=== PATIENT | female | born 1995 | race Caucasian/White ===

== ENCOUNTER 2017-07-06 05:49 | Inpatient (IN) ==
[2017-07-06] MEDS ORDERED: Ringers Solution, Lactated 1,000 ML ONE (06:18)
[2017-07-06] MEDS ORDERED: Oxytocin 20 units/ LR 1000 mL 20 UNIT/1,000 ML BAG IVC ONE (06:38)
[2017-07-06] MEDS ORDERED: Famotidine 20 MG/2 ML VIAL IVP ONE (06:38)
[2017-07-06] MEDS ORDERED: Metoclopramide 10 MG/2 ML VIAL IVP ONE (06:38)
[2017-07-06] MEDS ORDERED: Naloxone 0.4 MG/ML INJ IVP PRN (06:38)
[2017-07-06] MEDS ORDERED: Ondansetron 4 MG/2 ML VIAL IVP PRN ×2 (06:38→11:23)
[2017-07-06] MEDS ORDERED: ceFAZolin 3,000 MG in Water for inj. (sterile) 30 ML IVP ONE (06:42)
[2017-07-06] MEDS ORDERED: Oxytocin 20 units/ LR 1000 mL 20 UNIT/1,000 ML BAG IVC SCH ×2 (06:45→11:23)
[2017-07-06] MEDS ORDERED: Ringers Solution, Lactated 1,000 ML IVC SCH ×2 (06:45→07:30)
[2017-07-06 07:25] LABS: Basophils # 0.1 K/mcL (0.0-0.2); Basophils % 0.5 %; Eosinophils # 0.2 K/mcL (0.0-0.6); Eosinophils % 1.6 %; Hematocrit 31.7 % (35.3-44.9); Hemoglobin 10.1 g/dL (11.5-15.4); Immature Granulocytes % 1.1 % (0-4); Lymphocytes # 2.9 K/mcL (0.6-4.6); Lymphocytes % 30.5 %; Mean Corpuscular HGB Conc 31.9 g/dL (31.6-35.5); Mean Corpuscular Hemoglobin 26.9 pg (28.0-33.3); Mean Corpuscular Volume 84.3 fL (83.0-100.0); Mean Platelet Volume 10.8 fL (9.4-12.4); Monocytes # 1.1 K/mcL (0.0-1.3); Monocytes % 11.4 %; Neutrophils # 5.1 K/mcL (1.6-8.9); Nucleated Red Blood Cells 0.2 /100 WBC (0); Platelet Count 304 K/mcL (140-400); Red Blood Count 3.76 M/mcL (3.82-4.97); Red Cell Distribution Width 12.7 % (11.5-14.5); Segmented Neutrophils % 54.9 %
[2017-07-06] MEDS ORDERED: *HR* OxyCODONE Immed Rel 5 MG TABLET PO PRN (07:26)
[2017-07-06] MEDS ORDERED: *HR* HYDROmorphone 2 MG TABLET PO PRN (07:26)
[2017-07-06] MEDS ORDERED: Albuterol 2.5 MG/3 ML NEBULIZER IH ONE (07:26)
[2017-07-06] MEDS ORDERED: *HR* Promethazine 25 MG/ML VIAL IVP PRN (07:26)
[2017-07-06] MEDS ORDERED: Acetaminophen IV 1,000 MG/100 ML INFUS..BTL IVPB ONE (07:26)
[2017-07-06] MEDS ORDERED: Ondansetron 4 MG/2 ML VIAL IVP ONE (07:26)
--- NOTE | 2017-07-06 07:26 | Anesthesia Evaluation PreOp ---
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 Other Medical History: Denies Any Significant HX Anesthesia History: No Prior Anesthetic Complications, Past Anesthesia : Yes (39.3) Alcohol Use: none Drug use: none Medications and Allergies Heartburn Relief 1 PO PRN PRN 03/14/17 [History] [employer] Vitamins Tablet 1 tab PO DAILY 03/14/17 [History] Nausea Med 1 tab PO PRN PRN 03/14/17 [History] 3 Allergy/AdvReac Type Severity Reaction Status Date / Time No Known Allergies Allergy Verified 07/06/17 07:16 - Meds/Allergy Pre-op Review Medications Reviewed: Yes Allergies Reviewed: Yes Beta Blockers on Current Med List: No Anesthesia Exam Height: 1.63m Weight: 102kg NPO (# of Hours): 8 Pain Scale: 2 Pain Scale Used: Numeric (1 - 10) - HEENT Pupil (Motor): Pupils equal Mallampati: II Teeth: Normal Oral Opening: Greater than 3 - SQL PROGRAMMER ANALYST LOC: Oriented SQL PROGRAMMER ANALYST Motor: Normal RUE, Normal LUE, Normal RLE, Normal LLE, Normal Face SQL PROGRAMMER ANALYST Sensory: Normal: RUE, LUE, RLE, LLE, Face - Cardiac Rhythm: Regular Murmur: None JVD: No Carotid Bruit: No - Pulmonary Breath Sounds: bilateral Clear Respiratory Effort: Symmetrical Anesthesia Assess/Plan ASA Score: 2 Modified Summit Scale for Level of Consciousness: Cooperative, oriented, and tranquil Anesthetic Plan: General (plan b), Regional (plan a) Autologous Blood: Yes Monitoring Plan: Standard Monitors Recovery Plan: PACU
[2017-07-06] MEDS ORDERED: EPHEDrine 50 MG/ML VIAL ONE (07:37)
[2017-07-06] MEDS ORDERED: *HR* Oxytocin 10 UNIT/ML VIAL IM ONE (07:37)
[2017-07-06] MEDS ORDERED: *HR* FentaNYL (PF) 100 MCG/2 ML VIAL ONE (07:37)
[2017-07-06] MEDS ORDERED: Morphine Sulfate/PF 5mg/10mL Vial ONE (07:37)
[2017-07-06] MEDS ORDERED: Water for inj. (sterile) 10 ML IV ONE (07:38)
[2017-07-06] MEDS ORDERED: Ringers Solution, Lactated 2,000 ML ONE (08:15)
[2017-07-06] MEDS ORDERED: *HR* Phenylephrine 10 MG/ML VIAL ONE (08:44)
--- NOTE | 2017-07-06 09:11 | OB/GYN Procedure Note ---
Section - Date of procedure: 07/06/17 Preop diagnosis: desires repeat Post-op diagnosis: same Procedure: repeat low transverse Surgeon: Saud Nava Estimated blood loss (cc): 500 Was there an liaison inspection laboratory assistant present: No Anesthesiologist: Yvon Wilkes Anesthesia Type: Spinal section complications: none Disposition: PACU - (s) A Delivery Date: 07/06/17 Infant Delivery Time: 08:18 Presentation: vertex Position: ANCA Gender: Male Viability: Viable Pounds: 7 Ounces: 3 at 1 minute: 8 at 5 minutes: 9 Shoulder Dystocia: not encountered Specimens collected: cord blood Placenta: complete extraction - Narrative Narrative: Patient was taken to the operating room. After satisfactory spinal anesthesia was achieved, she was placed in supine position Mathis catheter inserted and prepped and draped in usual manner. After appropriate timeout, the abdomen was entered through standard Maylard incision. The Arminda retractor was placed. The peritoneum overlying the lower uterine segment was incised in the U-shaped fashion. The uterine cavity was entered sharply. Fluid was clear. With fundal pressure and vacuum assistance, the head was delivered. suctioned upon delivery of the head. The remainder of the was delivered , umbilical cord doubly clamped and cut, and infant handed to nursery staff for further evaluation. Placenta was removed and sent to pathology for home. Uterus was closed with 3-0 Monocryl in a single layer. After assurance of hemostasis, the abdomen was closed standard fashion using 0 Vicryl on the fascia and 3-0 Monocryl in the skin. Yumiko dressing was applied. Patient did well was taken to recovery room in satisfactory condition. Counts were correct.
--- NOTE | 2017-07-06 10:56 | Anesthesia Evaluation Post Op ---
Date of Encounter: 07/06/17 Time of Encounter: 10:54 - Vital Signs Vital Signs: Intake and Output 07/05/17 07/06/17 07/06/17 23:59 07:59 15:59 Other: Weight 102 kg Patient Weight 07/06/17 23:59 Weight 102 kg - Lungs Lungs: Clear Ascult./Percussion - Airway Airway: Non-obstructed - Cardiovascular Regular Rate, Baseline Rhythm - Mental Status Mental Status: Alert & Oriented, Answers Appropriately, Baseline Status - Pain Pain Scale: 2 Pain Scale used: Numeric (1 - 10) - Nausea Vomiting Nausea Vomiting: Responds to treatment with IV Meds - Hydration Hydration: NPO, Mathis catheter - Discharge PostOp Status: Transfer Patient to floor
[2017-07-06] MEDS ORDERED: *HR* OxyCODONE/APAP 5/325 TABLET PO PRN (11:23)
[2017-07-06] MEDS ORDERED: Simethicone 80 MG TAB.CHEW PO PRN (11:23)
[2017-07-06] MEDS ORDERED: Sennosides 8.6 MG TABLET PO PRN (11:23)
[2017-07-06] MEDS ORDERED: Metoclopramide 10 MG/2 ML VIAL IVP PRN (11:23)
[2017-07-07 05:21] LABS: Basophils % 0.1 %; Eosinophils # 0.1 K/mcL (0.0-0.6); Eosinophils % 1.3 %; Hematocrit 26.3 % (35.3-44.9); Immature Granulocytes % 0.6 % (0-4); Lymphocytes # 2.3 K/mcL (0.6-4.6); Lymphocytes % 23.5 %; Mean Corpuscular HGB Conc 32.3 g/dL (31.6-35.5); Mean Corpuscular Hemoglobin 27.9 pg (28.0-33.3); Mean Corpuscular Volume 86.2 fL (83.0-100.0); Mean Platelet Volume 10.8 fL (9.4-12.4); Monocytes # 1.2 K/mcL (0.0-1.3); Monocytes % 12.1 %; Neutrophils # 6.1 K/mcL (1.6-8.9); Platelet Count 226 K/mcL (140-400); Red Blood Count 3.05 M/mcL (3.82-4.97); Red Cell Distribution Width 12.8 % (11.5-14.5); Segmented Neutrophils % 62.4 %
[2017-07-07 05:23] LABS: Hemoglobin 8.5 g/dL (11.5-15.4)
[2017-07-07] MEDS: Prenatal Vit/FA 1 EACH TABLET PO SCH (08:24)
--- NOTE | 2017-07-07 08:27 | OB/GYN Progress Note ---
Date of Encounter: 07/07/17 Time of Encounter: 08:24 - Assessment and Plan (1) Status post section Current Visit: Yes Status: Acute POD #1 repeat c/s with Dr. Nava Hgb down to 8.5 from 10.1. PT asymptomatic. Pt receiving iron supplementation. Will continue to monitor. Pt has pain when up moving, has not had pain meds since c/s. Advised to ask for prn meds when having pain. Complains of passing clots and blood in toilet this morning, advised that this is normal post op. Pt meeting post milestones (2) Acute blood loss anemia Current Visit: Yes Status: Acute Subjective - Subjective Interval history: POD #[address] Nava. Pt reports that she is doing well with minimal pain. She is passing gas and urinating, no BM yet. Her pain is mild until she moves. She states that she has not had anything for pain since her c- section. She does report passing blood and clots vaginally when she was urinating this morning. Patient reports: appetite normal, voiding normally, pain poorly controlled (has not had pain meds), ambulating normally [place]: doing well, bottle feeding Objective - Vital Signs Latest vital signs: Vital Signs Temp Pulse Pulse Resp BP Pulse Ox 07/07/17 08:02 68 16 109/76 98 07/07/17 04:40 98.1 F 77 16 112/67 97 07/06/17 20:05 98.2 F 68 14 115/61 99 07/06/17 14:18 78 16 07/06/17 14:00 97.7 F 68 16 116/70 99 07/06/17 13:05 70 16 07/06/17 13:00 97.6 F 67 16 117/68 98 07/06/17 12:04 16 07/06/17 12:00 97.6 F 65 16 115/69 96 07/06/17 11:30 97.6 F 68 16 116/63 99 07/06/17 11:00 97.6 F 61 16 116/65 100 Intake and Output 07/06/17 07/07/17 07/07/17 23:59 07:59 15:59 Output Total 400 / 400 625 / 625 Balance -400 / -400 -625 / -625 Output: Urine 225 / 225 Straight Cath 400 / 400 Catheter 400 / 400 Other: Weight 100.425 kg Patient Weight 07/07/17 23:59 Weight 100.425 kg - Exam Lungs: bilateral: normal Chest: Normal S1, Normal S2 Extremities: Present: normal Abdomen: Present: normal appearance, soft Incision: Present: normal, dry, intact, dressed Uterus: Present: normal, firm Comments: 2 fingers below umbilicus - Labs Labs: Laboratory Results - last 24 hr 07/06/17 07/07/17 08:20 05:08 WBC 9.8 RBC 3.05 L Hgb 8.5 L D Hct 26.3 L MCV 86.2 MCH 27.9 L MCHC 32.3 RDW 12.8 Plt Count 226 MPV 10.8 Immature Gran % 0.6 Seg Neutrophils % 62.4 Lymphocytes % 23.5 Monocytes % 12.1 Eosinophils % 1.3 Basophils % 0.1 Neutrophils # 6.1 Lymphocytes # 2.3 Monocytes # 1.2 Eosinophils # 0.1 Basophils # 0.0 Baby's Blood Type O RH NEGATIVE Mother's Blood Type A RH NEGATIVE Rhogam Indicated NO - Allied health notes Allied health notes reviewed: nursing
[2017-07-07] MEDS: Ibuprofen 600 MG TABLET PO PRN (19:02)
[2017-07-08 08:06] VITALS: BP 116/76
--- NOTE | 2017-07-08 08:24 | Discharge Summary ---
Addendum entered and electronically signed by Smitha Kruger DO 07/08/17 08 :32: [facility] reviewed and appropriate Original Note: Date of Encounter: 07/08/17 Time of Encounter: 08:10 - Discharge Diagnosis (1) Status post section Priority: Primary Status: Acute Comments: Patient doing well POD #2 c/s with Dr. Nava. Ambulating well, voiding, eating well, pain well controlled. Meeting post milestones. (2) Acute blood loss anemia Priority: Secondary Status: Acute Comments: Plan to continue iron - Discharge Medications Prescriptions: Ibuprofen [Motrin] 600 mg PO Q6HR PRN 30 Days #120 tablet PRN Reason: Cramping Docusate [Colace] 100 mg PO BID 30 Days #60 capsule Ferrous Sulfate 325 mg PO DAILY 30 Days #30 tablet OxyCODONE/APAP 5/325 [Percocet 5/325 MG] 1 each PO Q6H PRN 7 Days #28 tablet PRN Reason: Moderate pain 4-6 Home Medications: Heartburn Relief 1 PO PRN PRN 03/14/17 [History] [employer] Vit[employer] Tablet 1 tab PO DAILY 03/14/17 [History] Nausea Med 1 tab PO PRN PRN 03/14/17 [History] Docusate [Colace] 100 mg PO BID 30 Days #60 capsule 07/08/17 [Rx] Ferrous Sulfate 325 mg PO DAILY 30 Days #30 tablet 07/08/17 [Rx] Ibuprofen [Motrin] 600 mg PO Q6HR PRN 30 Days #120 tablet 07/08/17 [Rx] OxyCODONE/APAP 5/325 [Percocet 5/325 MG] 1 each PO Q6H PRN 7 Days #28 tablet [Rx] Allergies/Adverse Reactions: 3 Allergy/AdvReac Type Severity Reaction Status Date / Time No Known Allergies Allergy Verified 07/06/17 07:16 Data Procedures and tests throughout hospitalization: Laboratory Tests 07/06/17 07/06/17 07/07/17 06:08 08:20 05:08 WBC 9.4 9.8 RBC 3.76 L 3.05 L Hgb 10.1 L 8.5 L D Hct 31.7 L 26.3 L MCV 84.3 86.2 MCH 26.9 L 27.9 L MCHC 31.9 32.3 RDW 12.7 12.8 Plt Count 304 226 MPV 10.8 10.8 Immature Gran % 1.1 0.6 Seg Neutrophils % 54.9 62.4 Lymphocytes % 30.5 23.5 Monocytes % 11.4 12.1 Eosinophils % 1.6 1.3 Basophils % 0.5 0.1 Neutrophils # 5.1 6.1 Lymphocytes # 2.9 2.3 Monocytes # 1.1 1.2 Eosinophils # 0.2 0.1 Basophils # 0.1 0.0 Nucleated RBCs/100 WBC 0.2 H Baby's Blood Type O RH NEGATIVE Mother's Blood Type A RH NEGATIVE Rhogam Indicated NO Date of admission: 07/06/17 05:49 Primary care physician: Sherice Pickett MD Discharging clinician: Brenda Russell Anticipated date of discharge: 07/08/17 - Patient Status Disposition: Home, Self-Care Condition: Good Functional capacity at discharge: independent ambulation Overall status at discharge: patient is progressing back to baseline - Discharge Instructions Instructions: Section (DC) Follow Up With: Sherice Pickett MD [Primary Care Provider] - Saud Nava MD [Partnered Physician] - 07/20/17 11:00 am - Diet and Activity Activity: increase activity as tolerated Diet: advance to your usual diet Hospital Course Reason for admission: section Delivery: section Episiotomy: none Laceration: none Other procedures: none complications: none Discharge diagnosis: IUP at term delivered baby: male Hospital course: - Date of procedure: 07/06/17 Preop diagnosis: desires repeat Post-op diagnosis: same Procedure: repeat low transverse Surgeon: Saud Nava Estimated blood loss (cc): 500 Was there an nurseryman assistant present: No Anesthesiologist: Yvon Wilkes Anesthesia Type: Spinal section complications: none Disposition: PACU - (s) Infant A Delivery Date: 07/06/17 Delivery Time: 08:18 Presentation: vertex Position: ANCA Gender: Male Viability: Viable Pounds: 7 Ounces: 3 at 1 minute: 8 at 5 minutes: 9 Shoulder Dystocia: not encountered Specimens collected: cord blood Placenta: complete extraction - Narrative Narrative: Patient was taken to the operating room. After satisfactory spinal anesthesia was achieved, she was placed in supine position Mathis catheter inserted and prepped and draped in usual manner. After appropriate timeout, the abdomen was entered through standard Maylard incision. The Arminda retractor was placed. The peritoneum overlying the lower uterine segment was incised in the U-shaped fashion. The uterine cavity was entered sharply. Fluid was clear. With fundal pressure and vacuum assistance, the head was delivered. suctioned upon delivery of the head. The remainder of the was delivered , umbilical cord doubly clamped and cut, and infant handed to nursery staff for further evaluation. Placenta was removed and sent to pathology for home. Uterus was closed with 3-0 Monocryl in a single layer. After assurance of hemostasis, the abdomen was closed standard fashion using 0 Vicryl on the fascia and 3-0 Monocryl in the skin. Yumiko dressing was applied. Patient did well was taken to recovery room in satisfactory condition. Counts were correct. Time Attestation: Total time spent providing and/or coordinating discharge services: - VTE Documentation of Mechanical Device: Intermittent pneumatic compression device - Attending Attestation I examined this patient and my medical decision-making was reviewed with the Resident Physician. I agree with the documented findings, disposition and treatment plan as described. Ladan Russell CNM Exam - Constitutional Vitals: Temp Pulse Resp BP Pulse Ox 98.1 F 69 16 116/76 97 07/08/17 08:04 07/08/17 08:04 07/08/17 08:04 07/08/17 08:04 07/07/17 19:50 General appearance IM: A&O X 3, pleasant, no acute distress - Respiratory Respiratory exam: Present: CTAB - Cardiovascular Cardiovascular exam IM: Present: RRR, +S1, +S2 - GI/Abdominal GI/Abdominal exam IM: normal bowel sounds, soft Incision: normal, dry, intact, dressed - Uterine Tone: Firm Uterus Position: 3 Fingers Below Umbilicus, Midline - Extremities Exam Extremities exam IM: Present: normal capillary refill, normal inspection, radial pulses palpable and symmetrical - Neurological Exam Neurological exam: alert, oriented X3, no focal deficits - Psychiatric Additional comments: normal mood and affect, caring for baby appropriately
[2017-07-08] MEDS: Ibuprofen 600 MG TABLET PO PRN (09:08)
[2017-07-08] MEDS: Prenatal Vit/FA 1 EACH TABLET PO SCH (09:08)
--- NOTE | 2017-07-12 14:04 | OB/GYN History & Physical ---
Date of Encounter: 07/06/17 Time of Encounter: 08:00 Assessment and Plan (1) Previous section Status: Acute (2) 39 weeks gestation of Status: Acute History of Present Illness HPI: Ms. Cid is a 22 year old female Patient is 22-year-old 2 para 1 white female who is admitted today for repeat section. She denies spontaneous rupture membranes, vaginal bleeding, contractions. She reports active fetus. She been followed in our office without any significant problems. Past Med Surg Social Fam HX - Past Medical History Medical history: no medical history Psychiatric history: no psych history - Past Surgical History Surgical History: no surgical history - Social History Smoking Status: Current every day smoker Smokeless Tobacco Status: No Alcohol use: none Drug use: none - Family History Mother Living Status: Still Living Hx Family Cardiac Disorders: No Hx Family Respiratory Disorders: No Hx Family Cancer: No Hx Family GI Disorders: No Hx Family Genitourinary Disorders: No Hx Family Endocrine Disorder: No Hx Family Musculoskeletal Disorders: No Hx Family Neuromuscular Disorders: No Hx Family Neurologic Disorders: No Hx Family HEENT Disorders: No Hx Family Autoimmune Disorders: No Hx Family Reproductive Disorders: No Hx Family Psychosocial Disorders: No Hx Family Medical Disorders: No Obstetrical History - Pregnancies : 2 Para: 1 Medications and Allergies Heartburn Relief 1 PO PRN PRN 03/14/17 [History] [employer] Vitamins Tablet 1 tab PO DAILY 03/14/17 [History] Nausea Med 1 tab PO PRN PRN 03/14/17 [History] Docusate [Colace] 100 mg PO BID 30 Days #60 capsule 07/08/17 [Rx] Ferrous Sulfate 325 mg PO DAILY 30 Days #30 tablet 07/08/17 [Rx] Ibuprofen [Motrin] 600 mg PO Q6HR PRN 30 Days #120 tablet 07/08/17 [Rx] OxyCODONE/APAP 5/325 [Percocet 5/325 MG] 1 each PO Q6H PRN 7 Days #28 tablet [Rx] 3 Allergy/AdvReac Type Severity Reaction Status Date / Time No Known Allergies Allergy Verified 07/06/17 07:16 Review of System OB All systems PM: reviewed and no additional remarkable complaints except as stated - Genitourinary Genitourinary: amenorrhea - Menstruation Menstruation: amenorrhea Exam - Vital Signs Vital signs: Initial Vital Signs Temp Pulse Resp BP Pulse Ox 97.6 F 61 16 116/65 100 07/06/17 11:00 07/06/17 11:00 07/06/17 11:00 07/06/17 11:00 07/06/17 11:00 - Constitutional Constitutional: well developed, well nourished, no acute distress, average body habitus - HEENT HEENT: Normocephaly - Neck Neck exam: full ROM - Lungs Respiratory exam: CTAB - Cardiovascular Cardiovascular exam: RRR - Abdomen Abdomen: Present: bowel sounds normal, gravid, non tender - Extremities Extremities exam: full ROM Deep Tendon Reflex Grade: 2+ Normal - Uterus Uterus exam: Present: enlarged Results Result Diagrams: 07/07/17 05:08 Abnormal lab results RBC 3.05 M/mcL (3.82-4.97) L 07/07/17 05:08 Hgb 8.5 g/dL (11.5-15.4) L D 07/07/17 05:08 Hct 26.3 % (35.3-44.9) L 07/07/17 05:08 MCH 27.9 pg (28.0-33.3) L 07/07/17 05:08 Nucleated RBCs/100 WBC 0.2 /100 WBC (0) H 07/06/17 06:08 All other labs normal. - VTE Documentation of Mechanical Device: Intermittent pneumatic compression device - Attending Attestation mukesh [email or web address] md [email or web address]
== END 2017-07-08 11:41 | disposition home or self-care (01) | DRG 765 ==
LOC: 1NENUOBS 05:49
PROVIDERS: ADMIT Obstetrics & Gynecology; ATTEND Obstetrics & Gynecology

== ENCOUNTER 2019-06-26 10:18 | Inpatient (IN) ==
[~2019-06-26 10:18] MED LIST: CeFAZolin 2,000 MG/50 ML BAG IVPB ONE; Famotidine 20 MG/2 ML VIAL IVP ONE; Metoclopramide 10 MG/2 ML VIAL IVP ONE; Oxytocin 20 units/ LR 1000 mL 20 UNIT/1,000 ML BAG IVC ONE
[2019-06-26] MEDS ORDERED: Oxytocin 20 units/ LR 1000 mL 20 UNIT/1,000 ML BAG IVC SCH (10:30)
[2019-06-26] MEDS ORDERED: Ringers Solution, Lactated 1,000 ML IVC SCH (10:30)
[2019-06-26 10:47] LABS: Basophils # 0.1 K/mcL (0.0-0.2); Basophils % 0.4 %; Eosinophils % 0.4 %; Hematocrit 36.4 % (35.3-44.9); Hemoglobin 11.8 g/dL (11.5-15.4); Immature Granulocytes % 0.3 % (0-4); Lymphocytes # 2.1 K/mcL (0.6-4.6); Lymphocytes % 18.7 %; Mean Corpuscular HGB Conc 32.4 g/dL (31.6-35.5); Mean Corpuscular Hemoglobin 28.1 pg (28.0-33.3); Mean Corpuscular Volume 86.7 fL (83.0-100.0); Mean Platelet Volume 10.7 fL (9.4-12.4); Monocytes % 9.1 %; Platelet Count 249 K/mcL (140-400); Red Cell Distribution Width 12.9 % (11.5-14.5); Segmented Neutrophils % 71.1 %; White Blood Count 11.3 K/mcL (4.3-11.1)
[2019-06-26] MEDS: Ringers Solution, Lactated 1,000 ML IVC ONE ×2 (10:47→10:50)
[2019-06-26 10:55] LABS: Amphetamine Screen,Urine Negative ng/mL (Cutoff=1000); Barbiturate Screen,Urine Negative ng/mL (Cutoff=200); Benzodiazepines Screen,Urine Negative ng/mL (Cutoff=200); Cannabinoid Screen,Urine Negative ng/mL (Cutoff = 50); Cocaine Screen,Urine Negative ng/mL (Cutoff= 300); Opiate Screen,Urine Negative ng/mL (Cutoff=300); Phencyclidine Screen,Urine Negative ng/mL (Cutoff=25)
[2019-06-26] MEDS ORDERED: *HR* FentaNYL (PF) 100 MCG/2 ML VIAL ONE (11:06)
[2019-06-26] MEDS ORDERED: *HR* Morphine Sulfate/PF 10 MG/10 ML AMPUL ONE (11:06)
[2019-06-26] MEDS ORDERED: *HR* Phenylephrine 10 MG/ML VIAL ONE (11:07)
[2019-06-26] MEDS ORDERED: *HR* Oxytocin 10 UNIT/ML VIAL IM ONE (11:07)
[2019-06-26] MEDS ORDERED: Acetaminophen IV 1,000 MG/100 ML INFUS..BTL IVPB ONE (12:33)
[2019-06-26] MEDS ORDERED: *HR* Promethazine 25 MG/ML VIAL IVP PRN (12:33)
[2019-06-26] MEDS ORDERED: *HR* HYDROmorphone (PF) 1 MG/ML SYRINGE IVP PRN (12:33)
[2019-06-26] MEDS ORDERED: Ondansetron 4 MG/2 ML VIAL IVP PRN ×2 (12:33→17:15)
[2019-06-26] MEDS ORDERED: *HR* OxyCODONE/APAP 5/325 TABLET PO PRN (14:53)
[2019-06-26] MEDS ORDERED: Simethicone 80 MG TAB.CHEW PO PRN (17:15)
[2019-06-26] MEDS ORDERED: Sennosides 8.6 MG TABLET PO PRN (17:15)
[2019-06-26] MEDS ORDERED: Metoclopramide 10 MG/2 ML VIAL IVP PRN (17:15)
[2019-06-26] MEDS ORDERED: Rho Immune Globulin 1,500 UNIT SYRINGE IM ONE ×2 (17:15→22:15)
[2019-06-26] MEDS: Ringers Solution, Lactated 1,000 ML IVC SCH (18:55)
[2019-06-26] MEDS: Ibuprofen 600 MG TABLET PO PRN (18:59)
[2019-06-26] MEDS: metroNIDAZOLE 500 MG TABLET PO SCH ×2 (18:59→19:25)
[2019-06-26] MEDS: cephALEXin 500 MG CAPSULE PO SCH ×2 (19:00→19:26)
[2019-06-26] MEDS ORDERED: Nicotine 2 MG GUM BC PRN (19:46)
[2019-06-26] MEDS: *HR* OxyCODONE/APAP 5/325 TABLET PO PRN (20:48)
[2019-06-26] MEDS: Oxytocin 20 units/ LR 1000 mL 20 UNIT/1,000 ML BAG IVC SCH (21:26)
[2019-06-27] MEDS: *HR* OxyCODONE/APAP 5/325 TABLET PO PRN ×3 (03:00→16:01)
[2019-06-27] MEDS: Ringers Solution, Lactated 1,000 ML IVC SCH ×2 (05:21→19:40)
[2019-06-27] MEDS: Oxytocin 20 units/ LR 1000 mL 20 UNIT/1,000 ML BAG IVC SCH ×2 (05:21→19:41)
[2019-06-27] MEDS: metroNIDAZOLE 500 MG TABLET PO SCH ×3 (06:33→19:45)
[2019-06-27] MEDS: cephALEXin 500 MG CAPSULE PO SCH ×3 (06:33→19:45)
[2019-06-27] MEDS: Ibuprofen 600 MG TABLET PO PRN ×2 (06:34→13:07)
[2019-06-27 07:47] LABS: Basophils % 0.2 %; Eosinophils # 0.1 K/mcL (0.0-0.6); Hematocrit 29.5 % (35.3-44.9); Immature Granulocytes % 0.5 % (0-4); Lymphocytes # 2.1 K/mcL (0.6-4.6); Lymphocytes % 23.9 %; Mean Corpuscular HGB Conc 31.9 g/dL (31.6-35.5); Mean Corpuscular Hemoglobin 28.1 pg (28.0-33.3); Mean Corpuscular Volume 88.3 fL (83.0-100.0); Mean Platelet Volume 10.9 fL (9.4-12.4); Monocytes # 1.1 K/mcL (0.0-1.3); Monocytes % 12.3 %; Neutrophils # 5.5 K/mcL (1.6-8.9); Platelet Count 206 K/mcL (140-400); Red Blood Count 3.34 M/mcL (3.82-4.97); Red Cell Distribution Width 12.9 % (11.5-14.5); Segmented Neutrophils % 62.1 %; White Blood Count 8.8 K/mcL (4.3-11.1)
[2019-06-27 07:55] LABS: Hemoglobin 9.4 g/dL (11.5-15.4)
[2019-06-27] MEDS ORDERED: Prenatal Vit/FA 1 EACH TABLET PO SCH (09:00)
[2019-06-27] MEDS: *HR* OxyCODONE/APAP 10/325 TABLET PO PRN (21:15)
[2019-06-28] MEDS: Ringers Solution, Lactated 1,000 ML IVC SCH (00:19)
[2019-06-28] MEDS: *HR* OxyCODONE/APAP 10/325 TABLET PO PRN ×2 (05:37→11:19)
[2019-06-28 08:09] VITALS: BP 115/72
[2019-06-28] MEDS ORDERED: Ibuprofen 600 MG TABLET PO PRN (08:39)
[2019-06-28] MEDS ORDERED: *HR* OxyCODONE/APAP 5/325 TABLET PO PRN (08:41)
[2019-06-28] MEDS ORDERED: cephALEXin 500 MG CAPSULE PO SCH (09:00)
[2019-06-28] MEDS ORDERED: metroNIDAZOLE 500 MG TABLET PO SCH (09:00)
[2019-06-28] MEDS: Prenatal Vit/FA 1 EACH TABLET PO SCH ×2 (09:21→09:22)
== END 2019-06-28 12:14 | disposition home or self-care (01) | DRG 787 ==
LOC: 1NENULAB → 1NENUOBS 15:26
PROVIDERS: ADMIT Obstetrics & Gynecology; ATTEND Obstetrics & Gynecology